=== PATIENT | male | born 1965 | race Caucasian/White ===

== ENCOUNTER 2019-06-11 10:08 | Emergency (ER) | payer OTHER ==
[2019-06-11 10:46] VITALS: BP 122/81
--- NOTE | 2019-06-11 11:16 | UC ---
Eye Complaint HPI - HPI Summary HPI Summary: 54-year-old male presents with complaints of right eye redness, drainage, and discomfort. States last night started with a "gritty" feeling in the right eye. Woke up this morning and the eye was red and itching. Has developed some thick drainage from the eye. No known injury. Does not wear contacts. Denies URI symptoms, visual disturbances, or photophobia. - History of Current Complaint Chief Complaint: UCEye Stated Complaint: EYE PROBLEM Time Seen by Provider: 06/11/19 11:13 Hx Obtained From: Patient Pain Intensity: 0 - Allergies/Home Medications Allergies/Adverse Reactions: Allergies Allergy/AdvReac Type Severity Reaction Status Date / Time Penicillins Allergy See Comment Verified 06/11/19 10:46 Home Medications: Home Medications Albuterol HFA INHALER* [Ventolin HFA Inhaler*] 1 puff INH Q4H PRN 06/11/19 [ History Confirmed 06/11/19] Escitalopram * [Lexapro 5 mg (NF)] 5 mg PO DAILY 06/11/19 [History Confirmed ] Gabapentin CAP(*) [Neurontin 100 mg CAP(*)] 100 mg PO BID 06/11/19 [History Confirmed 06/11/19] Levothyroxine TAB* [Synthroid TAB*] 25 mcg PO 0800 06/11/19 [History Confirmed 06/11/19] Potassium Chlor TAB* [Klor Con ER TAB*] 10 meq PO DAILY 06/11/19 [History Confirmed 06/11/19] Propranolol 10 mg TAB [Inderal 10 mg TAB] 10 mg PO DAILY 06/11/19 [History Confirmed 06/11/19] PMH/Surg Hx/FS Hx/Imm Hx Endocrine History: Thyroid Disease Cardiovascular History: Hypertension Respiratory History: Asthma Psychological History: Depression - Surgical History Surgical History: Yes Surgery Procedure, Year, and Place: choley. hernia - Family History Known Family History: Positive: Non-Contributory - Social History Occupation: Retired Lives: With Family Alcohol Use: None Substance Use Type: None Smoking Status (MU): Never Smoked Tobacco Review of Systems All Other Systems Reviewed And Are Negative: Yes Constitutional: Negative: Fever, Chills Eyes: Positive: Drainage, Eye Redness. Negative: Blurred Vision, Diplopia, Photophobia ENT: Negative: Sore Throat, Ear Ache, Nasal Discharge, Sinus Congestion, Sinus Pain/Tenderness Respiratory: Negative: Cough Cardiovascular: Positive: Negative Gastrointestinal: Positive: Negative Genitourinary: Positive: Negative Musculoskeletal: Positive: Negative Neurological/Mental Status: Positive: Negative Is Patient Immunocompromised?: No Physical Exam - Summary Physical Exam Summary: GENERAL APPEARANCE: Well developed, well nourished, alert and cooperative, and appears to be in no acute distress. EYES: Left conjunctiva clear. No drainage. Right conjunctival erythema with thick purulent discharge. No foreign body noted. PERRL, EOM intact. Vision is grossly intact. EARS: External auditory canals and tympanic membranes clear, hearing grossly intact. NOSE: No nasal discharge. THROAT: Pharynx normal. No tonsilar inflammation, swelling, exudate, or lesions. Uvula midline. NECK: Neck supple, non-tender without lymphadenopathy. CARDIAC: Normal S1 and S2. No S3, S4 or murmurs. Rhythm is regular. There is no peripheral edema, cyanosis or pallor. Extremities are warm and well perfused. Capillary refill is less than 2 seconds. Peripheral pulses intact. LUNGS: Clear to auscultation without rales, rhonchi, wheezing or diminished breath sounds. ABDOMEN: Positive bowel sounds. Soft, nondistended, nontender. No guarding or rebound. No masses or hepatosplenomegally. MUSKULOSKELETAL: ROM intact to all extremities. No joint erythema or tenderness. Normal muscular development. Normal gait. SKIN: Skin normal color, texture and turgor with no lesions or eruptions. Triage Information Reviewed: Yes Vital Signs: Initial Vital Signs Temp 97.7 F 06/11/19 10:39 Pulse 53 06/11/19 10:39 Resp 18 06/11/19 10:39 BP 122/81 06/11/19 10:39 Pulse Ox 99 06/11/19 10:39 Vital Signs Reviewed: Yes Eye Complaint Course/Dx - Course Course Of Treatment: 54-year-old male presents with complaints of right eye redness, drainage, and discomfort. States last night started with a "gritty" feeling in the right eye. Woke up this morning and the eye was red and itching. Has developed some thick drainage from the eye. No known injury. Does not wear contacts. Denies URI symptoms, visual disturbances, or photophobia. Afebrile. Vital signs stable. Patient had right conjunctival erythema with thick purulent drainage, PERRL, EOM intact, vision grossly intact, no foreign body noted, and otherwise unremarkable exam. Will treat for an acute bacterial conjunctivitis of the right eye with Polytrim ophthalmic drops 1 drop 4 times a day 7 days. He is to return here or follow-up with his primary care provider or ophthalmology within 2 days if symptoms are not improving. Anticipatory guidance warning symptoms reviewed with the patient. Verbalizes understanding and agrees with plan of care. - Differential Dx/Diagnosis Differential Diagnosis/HQI/PQRI: Conjunctivitis, Corneal Abrasion, Foreign Body Provider Diagnosis: Bacterial conjunctivitis of right eye Discharge ED - Sign-Out/Discharge Documenting (check all that apply): Patient Departure All imaging exams completed and their final reports reviewed: No Studies - Discharge Plan Condition: Stable Disposition: HOME Prescriptions: Polymyx/Trimethoprim OPTH* [Polytrim OPHTH*] 1 drop RIGHT EYE QID 7 Days #1 btl Patient Education Materials: Conjunctivitis (ED) Referrals: Elise Vogt [Primary Care Provider] - 2 Days Jeanna Hernandez MD [Medical Doctor] - 2 Days Additional Instructions: Start Polytrim Ophthalmic drops. Instill 1 drop into the affected eye 4 times a day for 7 days. Do not wear your contacts until you have completed the treatment. Throw out the old pair and use a new pair once you have completed you treatment. To avoid reinfection or spreading infection: * Use washcloths and towels once then launder. * Do not share washcloths or towels with others. * Change your pillow case each morning until you have finished treatment. Return here or follow up with your primary care provider or ophthalmology within 2 days if no improvement. Seek immediate medical attention in the emergency room if you develop fever greater than 100.5 F, have pain or swelling of the eye, visual disturbances, loss of vision, or any worsening of symptoms. - Billing Disposition and Condition Condition: STABLE Disposition: Home
== END 2019-06-11 11:34 | disposition home or self-care (01) ==
LOC: UCCORT 10:08
DX: H10.89 Other conjunctivitis (principal); I10 Essential (primary) hypertension; J45.909 Unspecified asthma, uncomplicated; E07.9 Disorder of thyroid, unspecified; F32.9 Major depressive disorder, single episode, unspecified; Z88.0 Allergy status to penicillin; Z79.899 Other long term (current) drug therapy; Z79.890 Hormone replacement therapy
CPT/HCPCS: 99212; G0463